=== PATIENT | female | born 1985 | race Hispanic/Latino ===

== ENCOUNTER 2022-12-24 10:23 | Emergency (ER) | payer OTHER ==
[~2022-12-24] VITALS: Ht 170.2 cm; Wt 68.9 kg
[2022-12-24 11:09] VITALS: BP 110/67; PULSE 74; RESP 18; O2SAT 100
[2022-12-24] MEDS ORDERED: LIDOP TP (11:18)
[2022-12-24] MEDS ORDERED: CYCL10TA16 PO (11:18)
[2022-12-24] MEDS ORDERED: NAPR-1180 PO (11:18)
== END 2022-12-24 11:35 | disposition home or self-care (01) ==
LOC: EDH 10:23
DX: M62.830 Muscle spasm of back (principal); E78.00 Pure hypercholesterolemia, unspecified; Z98.890 Other specified postprocedural states

== ENCOUNTER 2023-01-19 19:05 | Emergency (ER) | payer OTHER ==
[~2023-01-19] VITALS: Ht 167.6 cm; Wt 68.5 kg
[~2023-01-19 19:05] MED LIST: CYCL10TA16 PO; LIDOP TP; NAPR-1180 PO
[2023-01-19 19:27] LABS: BASOPHILS # (AUTO) 0.02 K/uL (0.00-0.20); BASOPHILS % (AUTO) 0.3 % (0.0-5.0); EOSINOPHILS # (AUTO) 0.06 K/uL (0.00-0.70); HEMATOCRIT 30.5 % (36-48); IMMATURE GRANULOCYTE ABSOLUTE 0.02 K/uL (0-1); LYMPHOCYTES # (AUTO) 2.1 K/uL (1.0-4.8); MEAN CORPUSCULAR HGB CONC 30.8 g/dL (32.0-36.0); MONOCYTES # (AUTO) 0.6 K/uL (0.1-1.0); MONOCYTES % (AUTO) 9.2 % (3.0-13.0); NEUTROPHILS # (AUTO) 3.3 K/uL (1.8-7.7); NEUTROPHILS % (AUTO) 54.2 % (40.0-77.0); PLATELET COUNT (AUTO) 263 K/uL (130-400); RED BLOOD CELL COUNT(AUTO) 3.91 MIL/uL (4.00-5.50); RED CELL DISTRIBUTION WIDTH 15.5 % (11.0-15.5); WHITE BLOOD COUNT (AUTO) 6.1 K/uL (4.8-10.8)
[2023-01-19 19:35] LABS: CREATININE 0.6 mg/dL (0.5-1.5); POTASSIUM 3.5 mmol/L (3.5-5.1)
[2023-01-19 19:37] LABS: APPEARANCE,URINE CLEAR (CLEAR); BILIRUBIN,URINE NEGATIVE (NEGATIVE); COLOR,URINE COLORLESS (YELLOW); GLUCOSE, URINE (UA) NEGATIVE (NEGATIVE); KETONES,URINE NEGATIVE (NEGATIVE); LEUKOCYTE ESTERASE ,URINE 75 Leu/uL (NEGATIVE); NITRATE,URINE NEGATIVE (NEGATIVE); OCCULT BLOOD,URINE SMALL (NEGATIVE); PH,URINE 7.5 (5.0-8.0); PROTEIN,URINE NEGATIVE (NEGATIVE); UROBILINOGEN,URINE 0.2 mg/dL (0.2-1.0)
[2023-01-19 19:38] LABS: ADD UA MICROSCOPIC YES
[2023-01-19 19:54] LABS: BACTERIA,URINE RARE /HPF (None Seen)
[2023-01-19] MEDS ORDERED: ACETAMINOPHEN 500 MG TABLET PO ONE (20:00)
[2023-01-19 20:01] LABS: ALBUMIN 3.6 g/dL (3.5-5.0); BILIRUBIN,TOTAL 0.1 mg/dL (0.2-1.0); TOTAL PROTEIN, SERUM 7.1 g/dL (6.0-8.3)
[2023-01-19 20:52] LABS: MUCUS,URINE RARE LPF (None Seen); SQUAMOUS EPITHELIAL CELL,UR RARE /HPF (0-2)
[2023-01-19] MEDS ORDERED: CEPH500B PO (21:25)
[2023-01-19 21:41] VITALS: BP 102/59; PULSE 76; RESP 16; O2SAT 98
== END 2023-01-19 21:44 | disposition home or self-care (01) ==
LOC: EDH 19:05
DX: O99.011 Anemia complicating pregnancy, first trimester (principal); O23.41 Unspecified infection of urinary tract in pregnancy, first trimester; N39.0 Urinary tract infection, site not specified; Z3A.01 Less than 8 weeks gestation of pregnancy
CPT/HCPCS: 36415; 76801; 80053; 81001; 84702; 85025; 87088

== ENCOUNTER 2023-01-27 07:57 | Emergency (ER) | payer OTHER ==
[~2023-01-27] VITALS: Ht 170.2 cm; Wt 68.0 kg
[~2023-01-27 07:57] MED LIST changes: +CEPH500B PO
[2023-01-27] MEDS ORDERED: LACTATED RINGERS 1000ML 1,000 ML IV STA (08:34)
[2023-01-27 08:38] LABS: APPEARANCE,URINE CLEAR (CLEAR); BILIRUBIN,URINE NEGATIVE (NEGATIVE); COLOR,URINE LIGHT-YELLOW (YELLOW); GLUCOSE, URINE (UA) NEGATIVE (NEGATIVE); KETONES,URINE NEGATIVE (NEGATIVE); LEUKOCYTE ESTERASE ,URINE 25 Leu/uL (NEGATIVE); NITRATE,URINE NEGATIVE (NEGATIVE); OCCULT BLOOD,URINE LARGE (NEGATIVE); PH,URINE 6.5 (5.0-8.0); PROTEIN,URINE 20 mg/dL (NEGATIVE); UROBILINOGEN,URINE 0.2 mg/dL (0.2-1.0)
[2023-01-27 09:02] LABS: BASOPHILS # (AUTO) 0.03 K/uL (0.00-0.20); BASOPHILS % (AUTO) 0.5 % (0.0-5.0); EOSINOPHILS # (AUTO) 0.04 K/uL (0.00-0.70); EOSINOPHILS % (AUTO) 0.6 % (0.0-8.0); HEMATOCRIT 32.7 % (36-48); IMMATURE GRANULOCYTE ABSOLUTE 0.02 K/uL (0-1); LYMPHOCYTES # (AUTO) 1.4 K/uL (1.0-4.8); LYMPHOCYTES % (AUTO) 21.6 % (21.0-51.0); MEAN CORPUSCULAR HEMOGLOBIN 23.5 pg (27.0-33.0); MEAN CORPUSCULAR HGB CONC 30.6 g/dL (32.0-36.0); MEAN CORPUSCULAR VOLUME 76.9 fL (79-99); MONOCYTES # (AUTO) 0.5 K/uL (0.1-1.0); MONOCYTES % (AUTO) 7.8 % (3.0-13.0); NEUTROPHILS # (AUTO) 4.5 K/uL (1.8-7.7); NEUTROPHILS % (AUTO) 69.2 % (40.0-77.0); PLATELET COUNT (AUTO) 287 K/uL (130-400); RED BLOOD CELL COUNT(AUTO) 4.25 MIL/uL (4.00-5.50); RED CELL DISTRIBUTION WIDTH 15.9 % (11.0-15.5); WHITE BLOOD COUNT (AUTO) 6.4 K/uL (4.8-10.8)
[2023-01-27 09:26] LABS: ADD UA MICROSCOPIC YES
[2023-01-27 09:34] LABS: BACTERIA,URINE RARE /HPF (None Seen); MUCUS,URINE RARE LPF (None Seen); SQUAMOUS EPITHELIAL CELL,UR RARE /HPF (0-2)
[2023-01-27] MEDS ORDERED: CEPHALEXIN 500 MG CAPSULE PO ONE (11:00)
[2023-01-27] MEDS ORDERED: CEPH500B PO (11:02)
[2023-01-27 11:05] VITALS: BP 121/78; PULSE 69; RESP 18; O2SAT 100
== END 2023-01-27 11:31 | disposition home or self-care (01) ==
LOC: EDH 07:57
DX: O23.41 Unspecified infection of urinary tract in pregnancy, first trimester (principal); E78.00 Pure hypercholesterolemia, unspecified; Z3A.01 Less than 8 weeks gestation of pregnancy; Z79.899 Other long term (current) drug therapy; Z98.890 Other specified postprocedural states
CPT/HCPCS: 99284; 96360; 84703; 85025; 86850; 86900; 86901; 87088; 81001; 36415; 76817; J7120